=== PATIENT | female | born 1990 | race African-American/Black ===

== ENCOUNTER 2018-12-14 17:44 | Emergency (ER) | payer OTHER ==
[2018-12-22 19:22] LABS: BASOPHILS % 0.3 % (0.0-1.5); EOSINOPHILS % 1.9 % (0.0-6.8); MEAN CORPUSCULAR HEMOGLOBIN 27.5 pg (28.0-34.0); MONOCYTES % 4.8 % (0.0-11.0); eGFR (Non-African) > 60
[2018-12-22 19:23] LABS: APPEARANCE,URINE CLEAR (CLEAR); COLOR,URINE YELLOW (YELLOW); OCCULT BLOOD,URINE TRACE-INTACT (NEGATIVE); PH URINE 7.5 (5.0 - 8.0); URINE HCG NEGATIVE (NEGATIVE)
== END 2018-12-14 19:35 ==
LOC: ED 17:44
DX: D69.6 Thrombocytopenia, unspecified (principal); R20.2 Paresthesia of skin; R11.0 Nausea; R06.4 Hyperventilation
CPT/HCPCS: 80053; 80377; 81002; 81025; 85025; 99282; 99283; G0481; S1016